=== PATIENT | male | born 1960 | race Caucasian/White ===

== ENCOUNTER 2017-09-01 07:55 | Emergency (ER) | payer BC ==
[2017-09-01 08:11] VITALS: BP 128/80
--- NOTE | 2017-09-01 08:35 | UC ---
Skin Complaint HPI - HPI Summary HPI Summary: noted tick on left upper lat back this morning. removed the tick. + redness at the tick site. No fever / chills. No drainage. - History of Current Complaint Chief Complaint: [facility]CS[facility] Time Seen by Provider: 09/01/17 08:05 Stated Complaint: TICK Hx Obtained From: Patient - Allergy/Home Medications Allergies/Adverse Reactions: Allergies Allergy/AdvReac Type Severity Reaction Status Date / Time Sulfamethoxazole Allergy Hives Verified 03/22/14 12:00 w/Trimethoprim [From Bactrim] environmental Allergy Runny Nose Uncoded 09/01/17 08:11 Home Medications: Home Medications Canagliflozin (NF) [Invokana (NF)] 100 mg PO SEE INSTRUCTIONS 09/01/17 [History Confirmed 09/01/17] Sitagliptin Phosphate [Januvia] 25 mg PO SEE INSTRUCTIONS 09/01/17 [History Confirmed 09/01/17] Testosterone Cypionate 100 mg IM WEEKLY 09/01/17 [History Confirmed 09/01/17] Review of Systems Constitutional: Negative Skin: Other - see hpi ENT: Negative Respiratory: Negative Cardiovascular: Negative Gastrointestinal: Negative Genitourinary: Negative Motor: Negative Neurovascular: Negative Musculoskeletal: Negative Neurological: Negative Psychological: Negative Is Patient Immunocompromised?: No All Other Systems Reviewed And Are Negative: Yes PMH/Surg Hx/FS Hx/Imm Hx Previously Healthy: No - see below rn notes - Surgical History Surgical History: Yes Surgery Procedure, Year, and Place: appendectomy; right rotator cuff 02/2017. tonsillectomy - Social History Alcohol Use: Rare Alcohol Amount: 1/monthly Substance Use Type: None Smoking Status (MU): Former Smoker Type: Cigarettes Amount Used/How Often: 1 PPD Length of Time of Smoking/Using Tobacco: 10 Years Have You Smoked in the Last Year: No When Did the Patient Quit Smoking/Using Tobacco: Physical Exam Triage Information Reviewed: Yes Appearance: Well-Nourished Vital Signs: Initial Vital Signs Temp 97.9 F 09/01/17 08:05 Pulse 82 09/01/17 08:05 Resp 18 09/01/17 08:05 BP 128/80 09/01/17 08:05 Vital Signs Reviewed: Yes Eye Exam: Normal ENT Exam: Normal Respiratory Exam: Normal - no tachypnea no dyspnea Cardiovascular Exam: Normal - good color normal hr Abdominal Exam: Normal Musculoskeletal Exam: Normal Neurological Exam: Normal Psychological Exam: Normal - conversing easily and appropriately Skin Exam: Other - left upper back / flank + approx 3/4 cm eccymosis, redness, and hole at site of tick bite. Tick was brought in in entirity and alive all pieces noted. mild engorged. Course/Dx - Course Course Of Treatment: reviewed f/u. tet > 10yrs. boostrix today. questions answered as posed to the best of my ability. - Diagnoses Provider Diagnoses: tick bite Discharge - Discharge Plan Condition: Stable Disposition: HOME Prescriptions: DOXYcycline CAP(*) [DOXYcycline 100MG CAP(*)] 100 mg PO ONCE #2 cap Patient Education Materials: Tick Bite (ED), Diphtheria/Acellular Pertussis/ Tetanus Booster Vaccine (By injection) Referrals: Flash Barba MD [Primary Care Provider] -
[2017-09-01] MEDS: Tetan/Diph/Pertus SYR(Tdap)* 0.5 ML SYR(BOOSTRIX) use SYR IM ONE (08:50)
== END 2017-09-01 08:52 | disposition home or self-care (01) ==
LOC: UCCORT 07:55
DX: S20.462A Insect bite (nonvenomous) of left back wall of thorax, initial encounter (principal); J30.2 Other seasonal allergic rhinitis; W57.XXXA Bitten or stung by nonvenomous insect and other nonvenomous arthropods, initial encounter; Z88.2 Allergy status to sulfonamides; Z88.1 Allergy status to other antibiotic agents; Z87.891 Personal history of nicotine dependence
CPT/HCPCS: 90715; 96372; 99212; G0463

== ENCOUNTER 2018-03-02 18:26 | Emergency (ER) | payer BC ==
[2018-03-02 19:11] VITALS: BP 139/77
--- NOTE | 2018-03-02 20:01 | UC ---
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 " Here w/ his . c/o burning w. urination. no saddle pain + h/o kidney stones. -takes invokana for DM. -denies risk for STD, no penile d/c. -no LBP ? start of kidney stone pain. used to see Dr Hu - but hasnt had an issu to see him in a long time. -URI sx much better -denies episodes of hypo/hyperglycemia. - History of Current Complaint Chief Complaint: UCGeneralIllness Stated Complaint: COLD SYMPTOMS, URINARY COMPLAINT Time Seen by Provider: 03/02/18 19:54 Pain Intensity: 0 - Allergies/Home Medications Allergies/Adverse Reactions: Allergies Allergy/AdvReac Type Severity Reaction Status Date / Time sulfamethoxazole Allergy Hives Verified 03/02/18 19:07 [From Bactrim] trimethoprim [From Bactrim] Allergy Hives Verified 03/02/18 19:07 environmental Allergy Runny Nose Uncoded 09/01/17 08:11 Home Medications: Home Medications LevoCETirizine TAB (NF) [Xyzal TAB (NF)] 5 mg PO DAILY 03/02/18 [History Confirmed 03/02/18] Rizatriptan (NF) [Maxalt(NF)] 5 mg PO DAILY PRN 03/02/18 [History Confirmed ] Topiramate TAB(*) [Topamax 100 mg tab] 100 mg PO BEDTIME 03/02/18 [History Confirmed 03/02/18] PMH/Surg Hx/FS Hx/Imm Hx Endocrine History: Diabetes Cardiovascular History: Hypertension - Surgical History Surgical History: Yes Surgery Procedure, Year, and Place: appendectomy; right rotator cuff 02/2017. tonsillectomy - Family History Known Family History: Positive: Cardiac Disease, Hypertension, Diabetes - Social History Alcohol Use: Rare Alcohol Amount: 1/monthly Substance Use Type: None Smoking Status (MU): Former Smoker Type: Cigarettes Amount Used/How Often: 1 PPD Length of Time of Smoking/Using Tobacco: 10 Years Have You Smoked in the Last Year: No When Did the Patient Quit Smoking/Using Tobacco: 1980s Review of Systems Constitutional: Fatigue Skin: Negative Eyes: Negative ENT: Negative Respiratory: Cough - improved. Cardiovascular: Negative Gastrointestinal: Negative Genitourinary: Dysuria, Frequency, Urgency Motor: Negative Neurovascular: Negative Musculoskeletal: Negative Neurological: Negative Psychological: Negative Is Patient Immunocompromised?: No All Other Systems Reviewed And Are Negative: Yes Physical Exam Triage Information Reviewed: Yes Appearance: Well-Appearing, No Pain Distress, Well-Nourished - very pleasant Vital Signs: Initial Vital Signs Temp 98.4 F 03/02/18 19:05 Pulse 82 03/02/18 19:05 Resp 14 03/02/18 19:05 BP 139/77 03/02/18 19:05 Pulse Ox 97 03/02/18 19:05 Vital Signs Reviewed: Yes Eye Exam: Normal ENT: Positive: Pharynx normal - +PND, no exudate., TMs normal. Negative: Hoarse voice, Sinus tenderness Dental Exam: Normal Neck exam: Normal Neck: Positive: Supple, Nontender, No Lymphadenopathy Respiratory: Positive: Lungs clear, Normal breath sounds, No respiratory distress, No accessory muscle use. Negative: Crackles, Rhonchi, Stridor, Wheezing Cardiovascular Exam: Normal Cardiovascular: Positive: RRR, No Murmur, Pulses Normal Abdomen Description: Positive: Nontender, Soft Musculoskeletal Exam: Normal Neurological Exam: Normal Psychological Exam: Normal Skin Exam: Normal Complaint Male Course/Dx - Course Course Of Treatment: UA + 2 gluc (d/t invokana), neg nitrates. + LE. -treat w. cipro 500mgs bid x 14 d w/ probiotic. -tr blood in urine. -adv to f/u with urology next week. -ER w/ shaking/chills/rigors - Differential Dx/Diagnosis Differential Diagnosis/HQI/PQRI: Prostatitis, Urinary Tract Infection Provider Diagnoses: UTI Discharge - Sign-Out/Discharge Documenting (check all that apply): Post-Discharge Follow Up - Discharge Plan Condition: Stable Disposition: HOME Prescriptions: Ciprofloxacin HCl [Cipro 500 MG TAB] 500 mg PO BID 14 Days #28 tab Patient Education Materials: Urinary Tract Infection in Men (ED) Referrals: Flash Barba MD [Primary Care Provider] - Additional Instructions: -Make sure to take a probiotic daily while on antibiotics to help prevent a potential complication of antibiotic use called c diff. Some well known brands that can be found OTC are florastor, align and colon health. Make sure to complete the entire prescription unless advised otherwise by your health care provider. -You should call your urologist Dr Hu [phone] for an appt next week - Billing Disposition and Condition Condition: STABLE Disposition: HOME
== END 2018-03-02 20:24 | disposition home or self-care (01) ==
LOC: UCCORT 18:26
DX: N39.0 Urinary tract infection, site not specified (principal); F17.210 Nicotine dependence, cigarettes, uncomplicated; Z88.2 Allergy status to sulfonamides
CPT/HCPCS: 81003; 87077; 87086; 87186; 99212; G0463